=== PATIENT | female | born 1930 | race Caucasian/White ===

== ENCOUNTER 2021-08-06 12:23 | Inpatient (IN) | payer BC, OTHER ==
[~2021-08-06] VITALS: Ht 152.4 cm; Wt 44.9 kg
--- NOTE | 2021-08-06 12:28 | NUR ---
PT BIBA BLS TO BED 11.
--- NOTE | 2021-08-06 12:32 | NUR ---
89 Y/O FEMALE BIBA FROM [facility] UNDER DR. GERALD SALINAS, EMS STATED THAT THE PT HAD AN EGD AT 0800 TODAY AND THEY REMOVED A LARGE POLYP, PICTURES ATTACHED IN CHART, STATED THAT SHE WAS SCHEDULED FOR A COLOSTOMY BUT WAS CANCELLED PT HAD A "BAD REACTION" TO THE ANESTHESIA. PT IN DIAPER, 22G IN THE R WRIST IN PLACE. NKA PMH: HTN, DM, ANEMIA, CKD
[2021-08-06 12:35] VITALS: BP 165/72
--- NOTE | 2021-08-06 12:54 | NUR ---
DR DAMIAN AT BEDSIDE FOR EVAL
[2021-08-06] MEDS ORDERED: PANTOPRAZOLE 40 MG INJ VIAL IVP ONE (13:00)
[2021-08-06] MEDS ORDERED: NACL 0.9% 500 ML IV ONE (13:00)
--- NOTE | 2021-08-06 13:02 | NUR ---
SWABS HANDED TO SUSANA
[2021-08-06 13:42] LABS: BASOPHILS # (AUTO) 0.1 K/uL (0.00-0.22); BASOPHILS % (AUTO) 0.5 % (0.0-2.0); EOSINOPHILS # (AUTO) 0.1 K/uL (0-0.4); EOSINOPHILS % (AUTO) 0.6 % (0.0-4.0); HEMATOCRIT 34.2 % (36-48); HEMOGLOBIN 11.2 g/dL (12.0-16.0); LYMPHOCYTES # (AUTO) 0.7 K/uL (2.5-16.5); LYMPHOCYTES % (AUTO) 6.2 % (20.5-51.1); MEAN CORPUSCULAR HEMOGLOBIN 31 pg (27-31); MEAN CORPUSCULAR HGB CONC 33 g/dL (33-37); MEAN CORPUSCULAR VOLUME 93.2 fL (80-94); MONOCYTES # (AUTO) 0.3 K/uL (0.8-1.0); MONOCYTES % (AUTO) 3.1 % (1.7-9.3); NEUTROPHILS # (AUTO) 9.9 K/uL (1.8-7.7); NEUTROPHILS % (AUTO) 89.6 % (42.2-75.2); PLATELET COUNT (AUTO) 118 K/uL (140-450); RED BLOOD CELL COUNT(AUTO) 3.67 MIL/uL (4.20-5.40); RED CELL DISTRIBUTION WIDTH 13.3 % (11.6-13.7)
[2021-08-06 13:53] LABS: PROTHROMBIN TIME 9.8 secs (10.8-13.4)
[2021-08-06 13:55] LABS: ANION GAP 12.5 (8-16); ASPARTATE AMINOTRANSFERASE 33 U/L (15-37); CARBON DIOXIDE 22.3 mmol/L (21-32); CHLORIDE 108 mmol/L (98-107); CREATININE 0.8 mg/dL (0.6-1.3); GLUCOSE 150 mg/dL (74-106); POTASSIUM 3.8 mmol/L (3.5-5.1); SODIUM SERUM 139 mmol/L (136-145); TOTAL BILIRUBIN 0.3 mg/dL (0.0-1.0); UREA NITROGEN, BLOOD 15 mg/dL (7-18)
[2021-08-06] MEDS ORDERED: ONDANSETRON 4 MG/2 ML VIAL IVP PRN (14:55)
[2021-08-06] MEDS ORDERED: MAG SULF 2000 MG/WATER PREMIX 50 ML IV PRN (14:55)
[2021-08-06] MEDS ORDERED: ACETAMINOPHEN 325 MG TAB PO PRN (14:55)
[2021-08-06] MEDS ORDERED: MAGNESIUM OXIDE 400 MG TAB PO PRN (14:55)
[2021-08-06] MEDS ORDERED: KCL 20 MEQ/WATER INJ PREMIX 200 ML IV PRN (14:55)
[2021-08-06] MEDS ORDERED: POTASSIUM CHLORIDE 10 MEQ TABER PO PRN (14:55)
[2021-08-06] MEDS ORDERED: DEXTROSE 50% 50 ML SYR IVP PRN (15:05)
[2021-08-06] MEDS ORDERED: INSULIN LISPRO SLIDING SCALE 100 UNITS/ML VIAL SUBQ PRN (15:05)
[2021-08-06] MEDS ORDERED: MORPHINE SULFATE 2 MG/ML SYR IVP PRN (15:05)
--- NOTE | 2021-08-06 15:10 | NUR ---
AMERICO BOWER CALLED [facility] NOT READY
--- NOTE | 2021-08-06 15:14 | NUR ---
AMERICO BARROS CALLED [facility] NOT READY
--- NOTE | 2021-08-06 16:17 | NUR ---
SPOKE TO DR. GERALD SALINAS REGARDING PT CONDITION, ASKED ABOUT PT LAB RESULTS, RECEIVED VERBAL ORDER FOR BUN AND HEMOGLOBIN AND HEMATOCRIT LABS IN THE AM
[2021-08-06] MEDS: BLOOD GLUCOSE MONITORING 1 DEV DEV FS SCH ×2 (17:07→22:45)
--- NOTE | 2021-08-06 17:21 | NUR ---
Patient will be admitted to care of DR HANNA BERRY DO, . Admited to TELEMETRY. Will go to room 122A. Belongings list completed. Report to RACHEAL DRISCOLL.
--- NOTE | 2021-08-06 17:36 | NUR ---
RECEIVED REPORT FROM ED NURSE JEY BRANDON FOR CONTINUITY OF CARE. PT PLAN OF CARE DISCUSSED. PT IN STABLE CONDITION, CURRENTLY AWAKE A/OX2 AND DENIES ANY PAIN. PT BEDBOUND AND INCONTINENT WITH DIAPER. 22G IV IS ON THE RIGHT WRIST RUNNING NS AT 100ML/HR. SKIN INTACT, TURGOR LOOSE AND FRAIL. BREATHING EVEN, REGULAR, AND UNLABORED ON ROOM AIR.
[2021-08-06] MEDS: hydrALAZINE 20 MG/ML VIAL IVP PRN (18:29)
--- NOTE | 2021-08-06 18:29 | NUR ---
BP WAS 182/78, PRN HYDRALAZINE WAS GIVEN VIA IV PUSH.
--- NOTE | 2021-08-06 19:07 | NUR ---
ENDORSED PT TO NIGHTSHIFT NURSE WINTER FOR CONTINUITY OF CARE. PLAN OF CARE DISCUSSED. PT IN STABLE CONDITION.
[2021-08-06 20:00] VITALS: BP 150/90
--- NOTE | 2021-08-06 20:00 | NUR ---
DR. TYSON CALL TO GET PT'S LATEST STATUS . MADE T.O AND WILL CARRY OUT .
[2021-08-06] MEDS ORDERED: MAGNESIUM CITRATE 300 ML BTL PO ONE (20:25)
[2021-08-06] MEDS: DEXT 5% / NACL 0.45% 1,000 ML IV SCH (20:45)
[2021-08-06] MEDS ORDERED: MAGNESIUM CITRATE 300 ML BTL ONE (21:46)
[2021-08-06] MEDS: PANTOPRAZOLE 40 MG INJ VIAL IVP SCH (22:10)
[2021-08-06] MEDS: SUCRALFATE 1 GM TAB PO SCH (22:10)
[2021-08-07] VITALS: BP 158/70
--- NOTE | 2021-08-07 | NUR ---
ANSWER THE CALL LIGHT - PT SAID SHE IS FULLY WET DIAPER - WILL HELP CLINICAL DATA ASSOCIATE TO CLEAN THE PT . CALL LIGHT WITHIN REACH .
[2021-08-07 04:00] VITALS: BP 189/73
--- NOTE | 2021-08-07 04:01 | NUR ---
BP 189/ 73 , HR 111 - WILL MEDICATE .
[2021-08-07] MEDS: hydrALAZINE 20 MG/ML VIAL IVP PRN (04:11)
[2021-08-07 05:45] LABS: BASOPHILS % (AUTO) 0.1 % (0.0-2.0); EOSINOPHILS % (AUTO) 0.1 % (0.0-4.0); HEMATOCRIT 31.5 % (36-48); HEMOGLOBIN 10.5 g/dL (12.0-16.0); LYMPHOCYTES # (AUTO) 1.1 K/uL (2.5-16.5); LYMPHOCYTES % (AUTO) 9.5 % (20.5-51.1); MEAN CORPUSCULAR HEMOGLOBIN 30 pg (27-31); MEAN CORPUSCULAR HGB CONC 33 g/dL (33-37); MEAN CORPUSCULAR VOLUME 91.3 fL (80-94); MONOCYTES % (AUTO) 8.5 % (1.7-9.3); NEUTROPHILS # (AUTO) 9.2 K/uL (1.8-7.7); NEUTROPHILS % (AUTO) 81.8 % (42.2-75.2); PLATELET COUNT (AUTO) 144 K/uL (140-450); RED BLOOD CELL COUNT(AUTO) 3.45 MIL/uL (4.20-5.40); RED CELL DISTRIBUTION WIDTH 13.6 % (11.6-13.7); WHITE BLOOD COUNT (AUTO) 11.3 K/uL (4.8-10.8)
--- NOTE | 2021-08-07 05:51 | NUR ---
BP RE CHECK 153/93 , WA 98 , NO S/SX OF ACUTE DISTRESS NOTED AT THIS TIME
[2021-08-07] MEDS: BLOOD GLUCOSE MONITORING 1 DEV DEV FS SCH ×4 (05:55→20:35)
[2021-08-07 05:59] LABS: ALBUMIN 2.6 g/dL (3.4-5.0); ANION GAP 11.3 (8-16); ASPARTATE AMINOTRANSFERASE 32 U/L (15-37); CARBON DIOXIDE 23.3 mmol/L (21-32); CHLORIDE 107 mmol/L (98-107); CREATININE 0.9 mg/dL (0.6-1.3); GLUCOSE 133 mg/dL (74-106); MAGNESIUM 1.8 mg/dL (1.8-2.4); POTASSIUM 3.6 mmol/L (3.5-5.1); SODIUM SERUM 138 mmol/L (136-145); TOTAL BILIRUBIN 0.3 mg/dL (0.0-1.0); UREA NITROGEN, BLOOD 16 mg/dL (7-18)
--- NOTE | 2021-08-07 05:59 | NUR ---
BS CHECKED 133 - NPO - FOR SURGERY .
--- NOTE | 2021-08-07 07:31 | NUR ---
OPENING NOTE: REPORT RC'VD FROM OUT GOING NOC RN, ALL CARES ASSUMED.
--- NOTE | 2021-08-07 07:31 | NUR ---
ENDORSED - PT - STABLE . I ENDORSED TO AMERICO SAENZ - PT IS FOR COLONOSCOPY TODAY AT [address] TYSON , BUT NO SIGNED CONSENT YET - BECAUSE OF MENTAL STATUS OF THE PT . I GAVE TO DANY THE TEL NUMBER OF PT'S DAUGHTER : MICHELLE DOUGLAS [phone] TO INFORM HER ABOUT THE CONSENT AND TO GET THE INFO ABOUT VACCINATION HX OF THE PT - AMERICO SAENZ VERBALIZES UNDERSTANDING .
[2021-08-07 08:00] VITALS: BP 141/66
[2021-08-07] MEDS: PANTOPRAZOLE 40 MG INJ VIAL IVP SCH ×2 (08:28→20:28)
[2021-08-07] MEDS: LOSARTAN 50 MG TAB PO SCH (08:28)
[2021-08-07] MEDS: SUCRALFATE 1 GM TAB PO SCH ×2 (08:28→20:28)
[2021-08-07] MEDS: LABETALOL 100 MG TAB PO SCH ×2 (08:29→17:21)
[2021-08-07] MEDS: amLODIPine 5 MG TAB PO SCH (08:29)
--- NOTE | 2021-08-07 08:36 | NUR ---
INTRODUCTION MADE, PATIENT HONDURAN SPEAKING ONLY, CALL LIGHT IN REACH WITH BED LOW AND LOCKED FOR SAFETY, PIV TP RIGHT FA 22G PATENT WITH FLUIDS RUNNING PER ORDER. PATIENT REMAINS NPO FOR PROCEDURE TODAY, PENDING RETURN CALL FROM DAUGHTER FOR CONSENT. CHARGE AWARE.
[2021-08-07] MEDS ORDERED: diphenhydrAMINE 50 MG/ML VIAL ONE (09:14)
[2021-08-07] MEDS ORDERED: fentaNYL citrate 0.05 MG/ML VIAL ONE (09:15)
[2021-08-07] MEDS ORDERED: MIDAZOLAM 2 MG/2 ML VIAL ONE (09:15)
--- NOTE | 2021-08-07 09:43 | NUR ---
PATIENT HAS BEEN PICKED UP VIA GURNEY BY GI TEAM, CONSENT OBTAINED BY MD FROM DAUGHTER MICHELLE NARANJO PHONE. PATIENT STABLE IN NO ACUTE DISTRESS AND OR DISCOMFORT.
[2021-08-07] MEDS ORDERED: MIDAZOLAM 2 MG/2 ML VIAL IVP ONE (10:15)
[2021-08-07] MEDS ORDERED: fentaNYL citrate 0.05 MG/ML VIAL IVP ONE (10:15)
--- NOTE | 2021-08-07 10:20 | NUR ---
PATIENT HAS RETURNED FROM PROCEDURE, STABLE IN NO ACUTE DISTRESS AND OR DISCOMFORT. PER GI TEAM, GI MD HAS POST OP DX DIVERTICULOSIS.
[2021-08-07] MEDS: DEXT 5% / NACL 0.45% 1,000 ML IV SCH (11:10)
--- NOTE | 2021-08-07 11:28 | NUR ---
BS130, NO COVERAGE PER ORDERS.
--- NOTE | 2021-08-07 11:55 | NUR ---
DAUGHTER CALLED UNIT FOR UPDATES, ALL UPDATES GIVEN AND QUESTIONS ANSWERED. DAUGHTER EXPRESSES NO CONCERNS AT THIS TIME.
[2021-08-07 12:00] VITALS: BP 148/69
--- NOTE | 2021-08-07 12:27 | NUR ---
PATIENT HAS BEEN SCREENED AND CATEGORIZED MODERATE NUTRITION RISK. PATIENT WILL BE SEEN WITHIN 3-5 DAYS OF ADMISSION. / NATALEE CABEZ[address] RD
--- NOTE | 2021-08-07 13:05 | NUR ---
PATIENT AWAKE SITTING UP IN BED, NO ACUTE DISTRESS AND OR DISCOMFORT. PATIENT WAS GIVEN LUNCH TRAY, NO SIGNS OF ASPIRATION PRESENT, FRIENDLY AND COOPERATIVE.
--- NOTE | 2021-08-07 13:30 | NUR ---
FAMILY IN ROOM WITH PATIENT, ALL QUESTIONS ANSWERED.
--- NOTE | 2021-08-07 15:37 | NUR ---
RN ROUNDS PATIENT RESTING COMFORTABLY IN NO ACUTE DISTRESS AND OR DISCOMFORT. SAFETY PRECAUTIONS IN PLACE, BED LOW AND LOCKED FOR SAFETY. ALL NEEDS MET AT THIS TIME.
[2021-08-07 16:00] VITALS: BP 157/73
--- NOTE | 2021-08-07 17:18 | NUR ---
DC PLANNING: THE PATIENT WAS BIBA FROM [facility] AFTER HAVING BLEEDING S/P EGD WITH REMOVAL OF GASTRIC POLYPS. H/O CM, HTN AND RENAL DISEASE, GIVEN PROTONIX AND CARAFATE IN THE ED. WBC'S 11.3, H&H 10.5, 31.5. GI CONSULT, COLONOSCOPY DONE TODAY, ON PROTONIX IV, CARAFATE. PATIENT TO RETURN HOME WHEN CLINICALLY STABLE, CM WILL FOLLOW.
[2021-08-07] MEDS: HYDROcodone/APAP 5/325 MG 1 TAB TAB PO PRN (18:21)
--- NOTE | 2021-08-07 18:21 | NUR ---
4/10 PAIN REPORTED BY PATIENT TO HEAD
--- NOTE | 2021-08-07 18:56 | NUR ---
CLOSING NOTE: REPORT GIVEN TO INCOMING NOC RN, ALL CARES ENDORSED.
--- NOTE | 2021-08-07 19:30 | NUR ---
GET THE REPORT FROM MORNING NURSE,PATIENT IS LYING ON BED, PATIENT IS ALERT ORIENTED X3, CALL LIGHT IS WITHIN THE REACH,WILL CONTINUE TO MONITOR PATIENT.
[2021-08-07 20:00] VITALS: BP 119/56
--- NOTE | 2021-08-07 20:03 | NUR ---
PATIENT IS LYING ON BED,VITAL SIGN IS WITHIN THE NORMAL RANGE, NO ANY COMPLAIN OF PAIN OR SHORTNESS OF BREATH AT THIS TIME, CALL LIGHT IS WITHIN THE REACH, WILL CONTINUE TO MONITOR PATIENT.
[2021-08-08] VITALS: BP 141/50
--- NOTE | 2021-08-08 01:07 | NUR ---
PATIENT IS LYING ON BED,VITAL SIGN IS WITHIN THE NORMAL RANGE, NO ANY COMPLAIN OF PAIN OR SHORTNESS OF BREATH AT THIS TIME, ALL SCHEDULE MEDICATION IS GIVEN PER DOCTOR ORDER, CALL LIGHT IS WITHIN THE REACH, WILL CONTINUE TO MONITOR PATIENT.
[2021-08-08 04:00] VITALS: BP 145/91
--- NOTE | 2021-08-08 04:23 | NUR ---
PATIENT IS LYING ON BED, VITAL SIGN IS WITHIN THE NORMAL RANGE, NO ANY COMPLAIN OF PAIN OR SHORTNESS OF BREATH AT THIS TIME, CALL LIGHT IS WITHIN THE REACH,WILL CONTINUE TO MONITOR PATIENT.
[2021-08-08] MEDS: DEXT 5% / NACL 0.45% 1,000 ML IV SCH (04:24)
[2021-08-08 05:36] LABS: BASOPHILS % (AUTO) 0.3 % (0.0-2.0); EOSINOPHILS # (AUTO) 0.1 K/uL (0-0.4); EOSINOPHILS % (AUTO) 1.8 % (0.0-4.0); HEMATOCRIT 27.7 % (36-48); HEMOGLOBIN 9.1 g/dL (12.0-16.0); LYMPHOCYTES # (AUTO) 1.2 K/uL (2.5-16.5); LYMPHOCYTES % (AUTO) 19.5 % (20.5-51.1); MEAN CORPUSCULAR HEMOGLOBIN 30 pg (27-31); MEAN CORPUSCULAR HGB CONC 33 g/dL (33-37); MEAN CORPUSCULAR VOLUME 92.2 fL (80-94); MONOCYTES # (AUTO) 0.5 K/uL (0.8-1.0); MONOCYTES % (AUTO) 8.3 % (1.7-9.3); NEUTROPHILS # (AUTO) 4.5 K/uL (1.8-7.7); NEUTROPHILS % (AUTO) 70.1 % (42.2-75.2); PLATELET COUNT (AUTO) 108 K/uL (140-450); RED CELL DISTRIBUTION WIDTH 13.4 % (11.6-13.7); WHITE BLOOD COUNT (AUTO) 6.4 K/uL (4.8-10.8)
[2021-08-08 06:26] LABS: ALBUMIN 2.3 g/dL (3.4-5.0); ANION GAP 8.2 (8-16); ASPARTATE AMINOTRANSFERASE 29 U/L (15-37); CARBON DIOXIDE 24.9 mmol/L (21-32); CHLORIDE 112 mmol/L (98-107); GLUCOSE 94 mg/dL (74-106); MAGNESIUM 2.2 mg/dL (1.8-2.4); POTASSIUM 3.1 mmol/L (3.5-5.1); SODIUM SERUM 142 mmol/L (136-145); TOTAL BILIRUBIN 0.3 mg/dL (0.0-1.0); UREA NITROGEN, BLOOD 15 mg/dL (7-18)
[2021-08-08] MEDS: BLOOD GLUCOSE MONITORING 1 DEV DEV FS SCH ×2 (06:49→12:16)
--- NOTE | 2021-08-08 07:29 | NUR ---
GAVE THE REPORT TO MORNING NURSE ARNULFO FOR CONTINUOS OF CARE, PATIENT IS STABLE
--- NOTE | 2021-08-08 07:30 | NUR ---
RECEIVED REPORT FROM [place] CALLER. PT AWAKE IN BED WITH HOB ELEVATED. AOX4, ABLE TO MAKE NEEDS KNOWN IN [place]. NO SOB ON ROOM AIR. NO C/O PAIN. WITH IV ON RH 22G RUNNING D5 1/2NS AT 60CC/HR. AMBULATORY WITH ASSIST. SKIN INTACT. CALL LIGHT WITHIN REACH. POC DISCUSSED
[2021-08-08 08:00] VITALS: BP 146/104
[2021-08-08] MEDS: amLODIPine 5 MG TAB PO SCH (09:00)
[2021-08-08] MEDS: SUCRALFATE 1 GM TAB PO SCH (09:00)
[2021-08-08] MEDS: LABETALOL 100 MG TAB PO SCH (09:00)
[2021-08-08] MEDS: LOSARTAN 50 MG TAB PO SCH (09:00)
[2021-08-08] MEDS: PANTOPRAZOLE 40 MG INJ VIAL IVP SCH (09:00)
--- NOTE | 2021-08-08 09:15 | NUR ---
SEEN AND EXAMINED BY DR FERREIRA, DISCHARGE ORDER NOTED
--- NOTE | 2021-08-08 10:00 | NUR ---
DISCHARGE INSTRUCTIONS GIVEN TO PT'S DAUGHTER AND GRANDDAUGHTER. THEY WILL COME [employer]PER[employer] PT @[phone]
[2021-08-08 12:00] VITALS: BP 167/74
--- NOTE | 2021-08-08 12:10 | NUR ---
BLOOD SUGAR 118, NO COVERAGE
[2021-08-08 14:12] VITALS: BP 164/79
[2021-08-08] MEDS: HYDROcodone/APAP 5/325 MG 1 TAB TAB PO PRN (14:12)
[2021-08-08] MEDS: hydrALAZINE 20 MG/ML VIAL IVP PRN (14:12)
--- NOTE | 2021-08-08 14:15 | NUR ---
RENE MARTINEZ AT BEDSIDE. DISCHARGE INSTRUCTIONS GIVEN. WRITTEN PRESCRIPTION GIVEN. PT VERBALIZED UNDERSTANDING
--- NOTE | 2021-08-08 14:23 | NUR ---
PT DISCHARGED. PICKED UP BY DAUGHTER
== END 2021-08-08 14:30 | disposition home or self-care (01) | DRG 394 ==
LOC: MED 12:23 → MTU 14:58 → OBSVTOIN 08-07 10:41
PROVIDERS: ADMIT Internal Medicine; ATTEND Internal Medicine
PROC: 0DJD8ZZ Inspection of Lower Intestinal Tract, Via Natural or Artificial Opening Endoscopic (ICD-10-PCS; principal; 2021-08-07 09:45)
DX: K31.7 Polyp of stomach and duodenum (principal); D62 Acute posthemorrhagic anemia; E44.1 Mild protein-calorie malnutrition; Z68.1 Body mass index [BMI] 19.9 or less, adult; K92.2 Gastrointestinal hemorrhage, unspecified; I12.9 Hypertensive chronic kidney disease with stage 1 through stage 4 chronic kidney disease, or unspecified chronic kidney disease; E11.22 Type 2 diabetes mellitus with diabetic chronic kidney disease; N18.9 Chronic kidney disease, unspecified; Z20.822 Contact with and (suspected) exposure to COVID-19; K57.30 Diverticulosis of large intestine without perforation or abscess without bleeding
CPT/HCPCS: 45378; 96361; 96374; 99285; G0378; 36415; 71045; 80053; 82948; 83735; 85025; 85610; 85730; 86886; 86900; 86901; 87081; C9113; J0360; J1200; J1815; J2250; J3010; J7030